=== PATIENT | male | born 1945 | race Caucasian/White ===

== ENCOUNTER 2019-09-06 11:26 | Emergency (ER) | payer MEDICARE ==
[~2019-09-06] VITALS: Ht 177.8 cm; Wt 68.2 kg
[2019-09-06] MEDS ORDERED: LIDOcaine 1% w/EPI 1:200,000 injection 10mL vial IM ONE (12:25)
[2019-09-06] MEDS ORDERED: LIDOcaine 1% W/epiNEPHrine 1:200,000 10ml vial IJ ONE (12:30)
[2019-09-06 13:42] VITALS: BP 134/90
== END 2019-09-06 13:53 | disposition home or self-care (01) ==
LOC: ER 11:27
DX: S01.01XA Laceration without foreign body of scalp, initial encounter (principal); G40.909 Epilepsy, unspecified, not intractable, without status epilepticus; M54.2 Cervicalgia; W45.8XXA Other foreign body or object entering through skin, initial encounter; Y93.89 Activity, other specified; Y92.89 Other specified places as the place of occurrence of the external cause; Y99.8 Other external cause status
CPT/HCPCS: 12002; 70450; 72125; 99284